=== PATIENT | male | born 1980 ===

== ENCOUNTER 2021-04-27 06:12 | Day surgery (SDC) | payer OTHER ==
[~2021-04-27 06:12] MED LIST: COZAAR50 MG PO; TOPROL XL25 M1 PO
[2021-04-27] MEDS ORDERED: PERCOCET 5-3251 EACH PO (10:21)
[2021-04-27] MEDS ORDERED: COLACE100 MG PO (10:21)
== END 2021-04-27 15:35 | disposition home or self-care (01) ==
LOC: CIR.AMB 06:12
PROVIDERS: ATTEND Surgery
DX: K60.1 Chronic anal fissure (principal); K62.4 Stenosis of anus and rectum; Z20.822 Contact with and (suspected) exposure to COVID-19